=== PATIENT | male | born 1975 | race African-American/Black ===

== ENCOUNTER 2025-01-05 10:29 | Emergency (ER) | payer MEDICAID ==
[2025-01-05] MEDS: Ondansetron 4 MG/2 ML SDV IVPUSH ONE (11:20)
[2025-01-05] MEDS: diphenhydrAMINE 50 MG/ML SDV IVPUSH ONE (11:21)
[2025-01-05 11:22] LABS: BASOPHILS ABSOLUTE AUTO 0.03 10^3/uL (0.00-0.10); BASOPHILS PERCENT AUTO 0.3 % (0.0-1.0); EOSINOPHILS ABSOLUTE AUTO 0.45 10^3/uL (0.10-0.30); EOSINOPHILS PERCENT AUTO 4.9 % (1.0-3.0); IMMATURE GRAN ABSOLUTE AUTO 0.01 10^3/uL (0.00-0.04); IMMATURE GRAN PERCENT AUTO 0.1 % (0.0-0.4); LYMPHOCYTES ABSOLUTE AUTO 2.68 10^3/uL (1.00-4.00); LYMPHOCYTES PERCENT AUTO 29.0 % (20.0-40.0); MEAN PLATELET VOLUME 9.0 fL (7.4-10.4); MONOCYTES ABSOLUTE AUTO 0.43 10^3/uL (0.10-0.80); MONOCYTES PERCENT AUTO 4.7 % (2.0-8.0); NEUTROPHILS ABSOLUTE AUTO 5.64 10^3/uL (2.50-7.00); NEUTROPHILS PERCENT AUTO 61.0 % (50.0-70.0); PLATELET COUNT,PLT 282 10^3/uL (150-400); RED BLOOD CELL COUNT 5.37 10^6/uL (4.50-6.00); RED CELL DISTRIBUTION WIDTH 13.6 % (11.5-14.5); WHITE BLOOD CELL COUNT,WBC 9.24 10^3/uL (5.00-10.00)
[2025-01-05 11:38] LABS: ALANINE AMINOTRANSFERASE,ALT 21.0 U/L (14-63); ASPARTATE AMNIOTRANSFERASE,AST 11.0 U/L (15-37); BILIRUBIN TOTAL 2.7 mg/dL (0.2-1.0); BLOOD UREA NITROGEN,BUN 16.0 mg/dL (7-18); CARBON DIOXIDE,CO2 34.1 mmol/L (21.0-32.0); CHLORIDE,CL 100.0 mmol/L (98-107); CREATININE 1.35 mg/dL (0.51-1.17); EST CRCL DRUG DOSING (CG) 84.33 mL/min; GLUCOSE RANDOM 127.0 mg/dL (70-140); POTASSIUM,K 2.6 mmol/L (3.5-5.1); PROTEIN TOTAL,TP 7.7 g/dL (6.4-8.2); SODIUM,NA 145.0 mmol/L (136-145)
[2025-01-05 11:39] LABS: ESTIMATED GFR 65.0 mL/min (>=60)
[2025-01-05] MEDS: niCARdipine/Normal Saline 20 MG in Premix Bag 1 BAG IV SCH (12:00)
[2025-01-05] MEDS: Ketorolac 30 MG/ML SDV IVPUSH ONE (12:04)
== END 2025-01-05 12:34 ==
LOC: KA.ED 10:34
DX: I60.9 Nontraumatic subarachnoid hemorrhage, unspecified (principal); G93.6 Cerebral edema; G93.5 Compression of brain; Z88.8 Allergy status to other drugs, medicaments and biological substances
CPT/HCPCS: 70450; 80053; 85025; 96361; 96365; 96375; 99285-25; A9270-GY; J1171; J1200; J2405; J3490; J7030